=== PATIENT | female | born 1975 | race Caucasian/White ===

== ENCOUNTER → 2017-03-09 | Outpatient (CLI) | payer BC | LOC: MC.RAD 13:33 | DX: Z12.31 Encounter for screening mammogram for malignant neoplasm of breast (principal); N63 Unspecified lump in breast ==

== ENCOUNTER → 2018-11-14 | Outpatient (CLI) | payer BC | LOC: MC.RAD 13:37 | DX: Z12.31 Encounter for screening mammogram for malignant neoplasm of breast (principal) ==